=== PATIENT | male | born 1980 ===

== ENCOUNTER 2017-04-24 18:22 | Emergency (ER) | payer BC ==
[~2017-04-24] VITALS: Ht 180.3 cm; Wt 111.4 kg
[2017-04-24 18:23] VITALS: BP 166/93; PULSE 91; TEMP 99.1
== END 2017-04-24 20:13 | disposition home or self-care (01) ==
LOC: COL.ER 18:22
DX: S61.012A Laceration without foreign body of left thumb without damage to nail, initial encounter (principal); Z23 Encounter for immunization; W23.1XXA Caught, crushed, jammed, or pinched between stationary objects, initial encounter